=== PATIENT | male | born 1940 | race Caucasian/White ===

== ENCOUNTER 2016-11-02 16:50 | Inpatient (IN) | payer MEDICARE, OTHER ==
[~2016-11-02] VITALS: Ht 177.8 cm; Wt 98.4 kg
[~2016-11-02 16:50] MED LIST: ASPI1TAB69 PO; CILO100T PO; FENO48TA PO; GLIM2TAB PO; LISI-515 PO; METF500T4 PO; ROSU40 PO
[2016-11-03] VITALS (14 sets, daily range): BP systolic 131–150; BP diastolic 58–86; PULSE 80–104; RESP 16–20; TEMP 97.5–98.6; O2SAT 83–98
[2016-11-03] MEDS ORDERED: POVIDONE IODINE 5% (ANTISEPSIS KIT) 4 APPLICATIONS EACH NARE PRN (06:30)
[2016-11-03] MEDS ORDERED: LACTATED RINGER'S 1000 ML IV PRN (06:30)
[2016-11-03] MEDS ORDERED: SODIUM CHLORID 0.9% 500 ML IV PRN (06:30)
[2016-11-03] MEDS ORDERED: ceFAZolin 1,000 MG/NS 100 ML IV SCH ×2 (06:30)
[2016-11-03] MEDS ORDERED: METOPROLOL TARTRATE 25 MG TAB PO PRN (06:30)
[2016-11-03] MEDS ORDERED: INSULIN HUMAN REGULAR 1,000 UNITS/10 ML VIAL SQ PRN (06:30)
[2016-11-03] MEDS ORDERED: CHLORHEXIDINE GLUCONATE 2 % 1 PACK (2 CLOTHS) TOPICAL PRN (06:30)
[2016-11-03] MEDS ORDERED: AMLO10TA2 PO (06:58)
[2016-11-03] MEDS ORDERED: PROTAMINE SULFATE 50 MG/5 ML VIAL ONE (07:20)
[2016-11-03] MEDS ORDERED: HEPARIN SODIUM - SQ 10,000 UNITS/ML VIAL ONE (07:20)
[2016-11-03] MEDS ORDERED: LIDOCAINE HCL 1% 50 ML VIAL ONE (07:20)
[2016-11-03] MEDS ORDERED: HEPARIN SODIUM - IV 10,000 UNITS/10 ML VIAL ONE (07:20)
[2016-11-03 07:22] LABS: AUTOMATED NEUTROPHIL # 4.7 TH/MM3 (1.8-7.7); BASOPHIL % 0.5 % (0.0-2.0); EOSINOPHIL # 0.2 TH/MM3 (0-0.4); EOSINOPHIL % 2.8 % (0.0-4.0); HEMATOCRIT 38.1 % (39.0-51.0); HEMO FLAGS DIFF FINAL; LYMPH % 12.4 % (9.0-44.0); LYMPHOCYTE # 0.8 TH/MM3 (1.0-4.8); MEAN CELL VOLUME 93.9 FL (80.0-100.0); MEAN CORPUSCULAR HEMOGLOBIN 31.2 PG (27.0-34.0); MEAN CORPUSCULAR HGB CONC 33.2 % (32.0-36.0); MONO % 7.8 % (0.0-8.0); NEUT % 76.5 % (16.0-70.0); PLATELET COUNT 215 TH/MM3 (150-450); RED BLOOD COUNT 4.05 MIL/MM3 (4.50-5.90); RED CELL DISTRIBUTION WIDTH 13.1 % (11.6-17.2); WHITE BLOOD COUNT 6.1 TH/MM3 (4.0-11.0)
[2016-11-03] MEDS ORDERED: BUPIVACAINE/EPINEPHRINE 0.5% 50 ML VIAL ONE (07:26)
[2016-11-03 07:37] LABS: BICARBONATE 20.6 MEQ/L (21.0-32.0); POTASSIUM 4.4 MEQ/L (3.5-5.1)
[2016-11-03 07:40] LABS: APTT (PATIENT) 28.6 SEC (24.3-30.1); PROTHROMBIN TIME - PATIENT 10.9 SEC (9.8-11.6)
[2016-11-03] MEDS ORDERED: DEXAMETHASONE SOD PHOS 4 MG/ML VIAL ONE (07:48)
[2016-11-03] MEDS ORDERED: FAMOTIDINE 20 MG/2 ML VIAL ONE (07:48)
[2016-11-03] MEDS ORDERED: MIDAZOLAM HCL 2 MG/2 ML VIAL ONE (07:48)
--- NOTE | 2016-11-03 07:51 | EKG ---
Date Performed: 11/03/2016 Time Performed: 07:10:49 PTAGE: 76 years EKG: Sinus rhythm WITH OCCASIONAL SUPRAVENTRICULAR PREMATURE COMPLEXES BORDERLINE ECG PREVIOUS TRACING : 11/11/2015 02.39 No significant change from previous tracing noted. DOCTOR: Laureano Geiger Interpretating Date/Time 11/03/2016 07:50:02
[2016-11-03] MEDS ORDERED: fentaNYL CITRATE 250 MCG/5 ML AMP ONE (10:31)
[2016-11-03] MEDS ORDERED: INSULIN HUMAN REGULAR 1,000 UNITS/10 ML VIAL ONE (10:51)
[2016-11-03] MEDS ORDERED: POTASSIUM CHLOR 20 MEQ/100 ML x 1 BAG IV PRN (12:00)
[2016-11-03] MEDS ORDERED: SODIUM CHLORID 0.9% 500 ML INJ 500 ML IV ONE (12:00)
[2016-11-03] MEDS ORDERED: PHENYLEPH/NS 1000 MCG/10 ML SYR IV ONE (12:00)
[2016-11-03] MEDS ORDERED: PROPOFOL 200 MG/20 ML AMP IV ONE (12:00)
[2016-11-03] MEDS ORDERED: NORMOSOL R INJ 1,000 ML IV ONE (12:00)
[2016-11-03] MEDS ORDERED: MORPHINE SULFATE 4 MG/ML INJ IV PRN (12:00)
[2016-11-03] MEDS ORDERED: SODIUM CHLOR 0.9% 250 ML INJ 250 ML IV ONE (12:00)
[2016-11-03] MEDS ORDERED: MAGNESIUM SULFATE 1 GM/100 ML IV PRN (12:00)
[2016-11-03] MEDS ORDERED: NEOSTIGMINE 3 MG/3 ML SYR IV ONE (12:00)
[2016-11-03] MEDS ORDERED: ONDANSETRON HCL 4 MG/2 ML VIAL IV PUSH ONE (12:00)
[2016-11-03] MEDS ORDERED: ACETAMINOPHEN/HYDROcodone 325 MG/5 MG TAB PO PRN (12:00)
[2016-11-03] MEDS ORDERED: SODIUM CHLORIDE FLUSH PRN IV FLUSH (12:00)
[2016-11-03] MEDS ORDERED: POTASSIUM CHLOR 20 MEQ 100 ML x 2 BAGS IV PRN (12:00)
[2016-11-03] MEDS ORDERED: ONDANSETRON HCL 4 MG/2 ML VIAL IV PUSH PRN (12:00)
[2016-11-03] MEDS ORDERED: DEXTROSE 50% IN WATER 50 ML VIAL(D50) IV PUSH PRN (14:15)
[2016-11-03] MEDS ORDERED: GLUCAGON 1 MG/ML VIAL OTHER PRN (14:15)
[2016-11-03] MEDS ORDERED: PLEASE DISCONTINUE PREVIOUS SUPPLEMENTAL SCALE INSULIN ORDERS ONE (15:00)
[2016-11-03] MEDS: MEDIUM DOSE INSULIN NOVOLIN REGULAR SUPPLEMENTAL SCALE SQ SCH ×2 (16:47→21:27)
[2016-11-03] MEDS ORDERED: ATORVASTATIN 80 MG TAB PO SCH (21:00)
[2016-11-03] MEDS: metFORMIN HCL 500 MG TAB PO SCH (21:26)
[2016-11-03] MEDS: SODIUM CHLORIDE FLUSH BID IV FLUSH SCH (21:27)
--- NOTE | 2016-11-03 23:48 | MP ---
cc: DENNIS NICHOLAS JAMES DATE OF SURGERY: 11/03/2016 PREOPERATIVE DIAGNOSIS: Critical left carotid stenosis, asymptomatic. POSTOPERATIVE DIAGNOSIS Critical left carotid stenosis, asymptomatic. OPERATIVE PROCEDURE Left carotid endarterectomy with bovine patch angioplasty. SURGEON Golden Holman MD. BARREL FILLER HEAD: LINDSAY George. ANESTHESIA General endotracheal DESCRIPTION OF OPERATIVE PROCEDURE: With the patient in the supine position, general endotracheal anesthesia was induced, the cervical spine extended, rotated to the right, left anterior cervical region prepped with Betadine and draped in a sterile fashion. One gram of Ancef was administered intravenously and following a protocol time-out, the skin and subcutaneous tissue along the proposed incisional area was thoroughly infiltrated with 20 cc of 0.5% Marcaine with epinephrine. A curvilinear incision was performed along the anterior border of the sternocleidomastoid and deepened through the platysma. The sternocleidomastoid and internal jugular vein were mobilized laterally. The common, internal and external carotid arteries were circumferentially mobilized and encircled with vessel loops, care taken to identify and protect the hypoglossal and vagus nerves. The patient was systemically heparinized and 5000 units. The superior thyroid, external and internal carotid arteries were sequentially occluded with Yasargil clips, proximal common carotid artery occluded with an angled DeBakey vascular clamp. A vertical arteriotomy was performed along the anterolateral surface of the common carotid and extended well into the internal carotid lumen across a soft atherosclerotic plaque which filled the common carotid bifurcation and extended into the proximal internal carotid lumen producing at least 80% stenosis. Subintimal hemorrhage was noted within the concentric plaque but no gross ulceration. The Austen shunt was introduced and secured with Austen shunt clamps, care taken to avoid air or atheroembolization. The plaque was cleanly and completely endarterectomized. The remaining neolumen was copiously irrigated with heparinized saline. A bovine patch was secured to the endarterectomy incision with continuous 6-0 Prolene. Prior to placement of the final sutures the Austen shunt was removed, final sutures placed and tied, and pulsatile flow reestablished first to the external and secondly into the internal carotid as confirmed by Doppler signal. Heparin was reversed with 20 mg of protamine. Strict hemostasis was assured. The platysmal fascia was reapproximated with continuous 4-0 Monocryl. Skin was reapproximated with continuous subcuticular 5-0 Monocryl, reinforced with Steri-Strips and covered with sterile gauze. Instrument, needle and sponge count were correct x2. There were no operative complications. Upon awakening from anesthesia no lateralizing neurological deficits were apparent. MD SUJATA Hunter/ANA LUISA /6:31 PM /11:40 PM
[2016-11-04] VITALS (19 sets, daily range): BP systolic 139–145; BP diastolic 70–85; PULSE 74–93; RESP 16–19; TEMP 97.6–98.4; O2SAT 94–95
[2016-11-04] MEDS: MEDIUM DOSE INSULIN NOVOLIN REGULAR SUPPLEMENTAL SCALE SQ SCH ×2 (06:20→11:00)
[2016-11-04 06:25] LABS: REVIEW FLAG FINAL
[2016-11-04 06:55] LABS: MAGNESIUM 1.9 MG/DL (1.5-2.5); POTASSIUM 4.4 MEQ/L (3.5-5.1)
[2016-11-04] MEDS: metFORMIN HCL 500 MG TAB PO SCH (08:47)
[2016-11-04] MEDS: SODIUM CHLORIDE FLUSH BID IV FLUSH SCH (08:48)
[2016-11-04] MEDS ORDERED: LISINOPRIL 20 MG TAB PO SCH (09:00)
[2016-11-04] MEDS ORDERED: FENOFIBRATE 48 MG TAB PO SCH (09:00)
[2016-11-04] MEDS ORDERED: ASPIRIN EC 81 MG TABEC PO SCH (09:00)
[2016-11-04] MEDS ORDERED: GLIMEPIRIDE 2 MG TAB PO SCH (09:00)
[2016-11-04] MEDS ORDERED: LISI-515 PO (14:30)
== END 2016-11-04 14:56 | disposition home or self-care (01) | DRG 39 ==
LOC: HSDI 11-03 05:54 → HCIN 11-03 13:07
PROVIDERS: ADMIT Surgery Vascular Surgery; ATTEND Surgery Vascular Surgery
PROC: 03CL0ZZ Extirpation of Matter from Left Internal Carotid Artery, Open Approach (ICD-10-PCS; 2016-11-03)
PROC: 03UJ0JZ Supplement Left Common Carotid Artery with Synthetic Substitute, Open Approach (ICD-10-PCS; 2016-11-03)
PROC: 03UL0JZ Supplement Left Internal Carotid Artery with Synthetic Substitute, Open Approach (ICD-10-PCS; 2016-11-03)
PROC: 03CJ0Z6 (ICD-10-PCS; principal; 2016-11-03 07:57)
DX: I65.22 Occlusion and stenosis of left carotid artery (principal); E11.9 Type 2 diabetes mellitus without complications; I10 Essential (primary) hypertension; E78.5 Hyperlipidemia, unspecified; I25.10 Atherosclerotic heart disease of native coronary artery without angina pectoris; I73.9 Peripheral vascular disease, unspecified; F17.210 Nicotine dependence, cigarettes, uncomplicated; E66.9 Obesity, unspecified; Z68.31 Body mass index [BMI] 31.0-31.9, adult
CPT/HCPCS: 80048; 82948; 83735; 84100; 85014; 85018; 85025; 85610; 85730; 86850; 86900; 86901; 93005; J0690; J1100; J1644; J1815; J2250; J2370; J2405; J2710; J2720; J3010; J7040; J7050; J7120